=== PATIENT | male | born 1985 | race Caucasian/White ===

== ENCOUNTER 2021-02-19 13:54 | Emergency (ER) | payer MEDICAID ==
[2021-02-19] MEDS ORDERED: BACITRACIN ZIN1 EAC1 TP (16:25)
[2021-02-19] MEDS ORDERED: BACTRIM DS TAB1 EACH PO (16:25)
== END 2021-02-19 16:30 | disposition home or self-care (01) ==
LOC: ER1 13:54
DX: L02.01 Cutaneous abscess of face (principal); F17.210 Nicotine dependence, cigarettes, uncomplicated
CPT/HCPCS: 87070; 87205; 99283